=== PATIENT | female | born 1950 | race Caucasian/White ===

== ENCOUNTER → 2019-09-23 | Outpatient (CLI) | payer MEDICARE | END | disposition home or self-care (01) | LOC: CFH 07:28 | PROVIDERS: ATTEND Internal Medicine Cardiovascular Disease | DX: I08.0 Rheumatic disorders of both mitral and aortic valves (principal); I10 Essential (primary) hypertension; E11.9 Type 2 diabetes mellitus without complications; E78.5 Hyperlipidemia, unspecified; Z87.891 Personal history of nicotine dependence | CPT/HCPCS: 78452; 93017; 93306; A9502 ==

== ENCOUNTER 2019-10-03 11:05 | Observation (INO) | payer MEDICARE ==
[~2019-10-03] VITALS: Ht 172.7 cm; Wt 71.0 kg
[2019-10-03 12:22] VITALS: BP 103/71
[2019-10-03] MEDS ORDERED: POTA20TA6 PO (12:46)
[2019-10-03] MEDS ORDERED: EMPA10TA PO (12:46)
[2019-10-03] MEDS ORDERED: SUMA5SPR2 INH (12:46)
[2019-10-03] MEDS ORDERED: MESA1.2T PO (12:46)
[2019-10-03] MEDS ORDERED: FENO160T PO (12:46)
[2019-10-03] MEDS ORDERED: LISI1TAB23 PO (12:46)
[2019-10-03] MEDS ORDERED: SERT25TA3 PO (12:46)
[2019-10-03] MEDS ORDERED: ALEN70TA6 PO (12:46)
[2019-10-03] MEDS ORDERED: MULT-658 PO (12:46)
[2019-10-03] MEDS ORDERED: OMEP-110 PO (12:46)
[2019-10-03] MEDS ORDERED: LACT1CAP35 PO (12:46)
[2019-10-03] MEDS ORDERED: ATOR40TA PO (12:46)
[2019-10-03] MEDS ORDERED: CHOL2000 PO (12:46)
[2019-10-03] MEDS ORDERED: LIDOCAINE 2%, 20ML ONE (12:55)
[2019-10-03] MEDS ORDERED: FENTANYL PF 100 MCG/2ML ONE (12:55)
[2019-10-03] MEDS ORDERED: MIDAZOLAM 1 MG/ML, 5ML ONE ×2 (12:55→13:47)
[2019-10-03] MEDS ORDERED: BIVALIRUDIN 250 MG ONE (13:26)
[2019-10-03] MEDS ORDERED: PRASUGREL 10 MG TABLET ONE (13:26)
[2019-10-03] MEDS ORDERED: BIVALIRUDIN 250 MG in SODIUM CHLORIDE 0.9% 50 ML IV SCH (14:13)
[2019-10-03] MEDS ORDERED: ZOLPIDEM 5MG TABLET PO PRN (14:30)
[2019-10-03] MEDS ORDERED: SUMATRIPTAN 6 MG INH PRN (14:30)
[2019-10-03] MEDS ORDERED: ONDANSETRON 2MG/ML, 2ML ONE (17:05)
[2019-10-03] MEDS ORDERED: ATROPINE SYRINGE 0.1 MG/ML, 10ML ONE (17:27)
[2019-10-03] MEDS ORDERED: ZOLPIDEM 10MG TABLET PO PRN (18:00)
[2019-10-03] MEDS ORDERED: HYDROcodone/APAP 5/325 TABLET PO PRN (18:00)
[2019-10-03] MEDS ORDERED: MORPHINE SULFATE 4 MG/ML, 1ML IVPush PRN (18:00)
[2019-10-03] MEDS: MESALAMINE 1.2 GM TABLET.DR PO SCH (21:14)
[2019-10-04 04:30] VITALS: BP 125/65
[2019-10-04 04:55] LABS: ANION GAP 9 mmol/L (5-15); CALCIUM 8.2 mg/dL (8.5-10.1); CHLORIDE 111 mmol/L (98-107); CREATININE 0.96 mg/dL (0.55-1.02)
[2019-10-04] MEDS ORDERED: ALENDRONATE 70 MG TABLET PO SCH (06:30)
[2019-10-04] MEDS: MESALAMINE 1.2 GM TABLET.DR PO SCH (08:40)
[2019-10-04] MEDS ORDERED: PRASUGREL 10 MG TABLET PO SCH (09:00)
[2019-10-04] MEDS ORDERED: POTASSIUM CHLORIDE 10 MEQ TABLET.ER PO SCH (09:00)
[2019-10-04] MEDS ORDERED: OMEPRAZOLE 20 MG CAPSULE.DR PO SCH (09:00)
[2019-10-04] MEDS ORDERED: FENOFIBRATE 54 MG TABLET PO SCH (09:00)
[2019-10-04] MEDS ORDERED: LACTOBACILLUS CHEW TABLET PO SCH (09:00)
[2019-10-04] MEDS ORDERED: LISINOPRIL 10 MG TABLET PO SCH (09:00)
[2019-10-04] MEDS ORDERED: CHOLECALCIFEROL 1,000 UNIT TABLET PO SCH (09:00)
[2019-10-04] MEDS ORDERED: HYDROCHLOROTHIAZIDE 12.5 MG CAPSULE PO SCH (09:00)
[2019-10-04] MEDS ORDERED: SERTRALINE 50MG TABLET PO SCH (09:00)
[2019-10-04] MEDS ORDERED: MULTIVITAMIN 1 TABLET PO SCH (09:00)
[2019-10-04 13:34] VITALS: BP 111/73
[2019-10-04] MEDS ORDERED: PRAS10TA4 PO (14:52)
[2019-10-04] MEDS ORDERED: ASPI81TA45 PO (14:52)
[2019-10-05] MEDS ORDERED: ATORVASTATIN 40 MG TABLET PO SCH (21:00)
== END 2019-10-04 15:28 | disposition home or self-care (01) ==
LOC: CACL 11:05 → ORIP 14:13 → CCU 17:34 → 5SO 10-04 12:34 → DCLOUNGE 10-04 15:20
PROVIDERS: ADMIT Internal Medicine Cardiovascular Disease; ATTEND Internal Medicine Cardiovascular Disease
DX: I12.9 Hypertensive chronic kidney disease with stage 1 through stage 4 chronic kidney disease, or unspecified chronic kidney disease (principal); E11.9 Type 2 diabetes mellitus without complications; E78.5 Hyperlipidemia, unspecified; K21.9 Gastro-esophageal reflux disease without esophagitis; N18.3 Chronic kidney disease, stage 3 (moderate); R06.02 Shortness of breath; R93.1 Abnormal findings on diagnostic imaging of heart and coronary circulation; I25.10 Atherosclerotic heart disease of native coronary artery without angina pectoris; Z87.891 Personal history of nicotine dependence; Z79.899 Other long term (current) drug therapy
CPT/HCPCS: 36415; 80048; 85018; 87081; 92978; 93005; 93458; 99156; 99157; C1753; C1769; C1874; C1887; C1894; C9600; G0378; J0461; J0583; J2250; J2405; J3010; J3490; Q9967

== ENCOUNTER 2019-11-14 12:38 | Outpatient (CLI) | payer MEDICARE ==
[~2019-11-14 12:38] MED LIST: ALEN70TA6 PO; ASPI81TA45 PO; ATOR40TA PO; CHOL2000 PO; EMPA10TA PO; FENO160T PO; LACT1CAP35 PO; LISI1TAB23 PO; MESA1.2T PO; MULT-658 PO; OMEP-110 PO; POTA20TA6 PO; PRAS10TA4 PO; SERT25TA3 PO; SUMA5SPR2 INH
== END 2019-11-14 23:59 | disposition home or self-care (01) ==
LOC: CFH 12:38
PROVIDERS: ATTEND Nurse Practitioner Family
DX: Z02.9 Encounter for administrative examinations, unspecified (principal)

== ENCOUNTER → 2020-01-11 | Outpatient (CLI) | payer MEDICARE ==
[~2020-01-11] MED LIST changes: +REGADENOSON 0.4 MG/5 ML SYRINGE ONE
== END | disposition home or self-care (01) ==
LOC: CFH 07:27
PROVIDERS: ATTEND Internal Medicine Cardiovascular Disease
DX: I08.3 Combined rheumatic disorders of mitral, aortic and tricuspid valves (principal); I10 Essential (primary) hypertension; I25.10 Atherosclerotic heart disease of native coronary artery without angina pectoris; E78.5 Hyperlipidemia, unspecified; E11.9 Type 2 diabetes mellitus without complications
CPT/HCPCS: 78452; 93017; 93306; A9502; J2785

== ENCOUNTER → 2020-02-06 | Outpatient (CLI) | payer MEDICARE ==
[~2020-02-06] MED LIST changes: -REGADENOSON 0.4 MG/5 ML SYRINGE ONE
== END | disposition home or self-care (01) ==
LOC: CFH 11:55
PROVIDERS: ATTEND Internal Medicine Nephrology
DX: N26.9 Renal sclerosis, unspecified (principal); N18.3 Chronic kidney disease, stage 3 (moderate); K50.90 Crohn's disease, unspecified, without complications; M81.0 Age-related osteoporosis without current pathological fracture; E55.9 Vitamin D deficiency, unspecified; E11.22 Type 2 diabetes mellitus with diabetic chronic kidney disease; I10 Essential (primary) hypertension
CPT/HCPCS: 76770

== ENCOUNTER → 2020-03-05 | Outpatient (CLI) | payer MEDICARE | END | disposition home or self-care (01) | LOC: CFH 11:47 | PROVIDERS: ATTEND Nurse Practitioner Family | DX: Z12.31 Encounter for screening mammogram for malignant neoplasm of breast (principal) | CPT/HCPCS: 77067 ==

== ENCOUNTER → 2020-07-13 | Outpatient (CLI) | payer MEDICARE ==
[~2020-07-13] MED LIST changes: -ALEN70TA6 PO; +ALEN70TA66 PO
== END | disposition home or self-care (01) ==
LOC: CFH 10:28
PROVIDERS: ATTEND Nurse Practitioner Family
DX: M81.0 Age-related osteoporosis without current pathological fracture (principal); N95.9 Unspecified menopausal and perimenopausal disorder
CPT/HCPCS: 77080